=== PATIENT | female | born 2000 | race Two or more races ===

== ENCOUNTER 2020-11-23 11:37 | Emergency (ER) | payer BC, OTHER ==
[~2020-11-23] VITALS: Ht 162.6 cm; Wt 49.9 kg
[2020-11-23 12:20] VITALS: BP 127/85
[2020-11-23] MEDS ORDERED: KETOROLAC TROMETH 30 MG/ML 1ML VIAL IV ONE (12:30)
[2020-11-23] MEDS ORDERED: diphenhdrAMINE HCL 50 MG/1 ML VL IV ONE (12:30)
[2020-11-23] MEDS ORDERED: SODIUM CHLORIDE 0.9% 1,000 ML IVB ONE (12:30)
[2020-11-23 13:03] LABS: Basophils # (auto) 0 10 ^3/uL (0-0.2); Basophils % (auto) 0.5 % (0.0-2.0); Eosinophils # (auto) 0 10 ^3/uL (0-0.8); Eosinophils % (auto) 0.3 % (0.0-7.0); Hematocrit 37.6 % (36.0-46.0); Hemoglobin 13.3 g/dL (12.2-16.2); Lymphocytes # (auto) 1.5 10 ^3/uL (0.4-5.4); Lymphocytes % (auto) 22.1 % (10.0-50.0); Mean Corpuscular Hemoglobin 31.2 pg (28.0-32.0); Mean Corpuscular Hgb Conc. 35.3 g/dL (32.0-36.0); Mean Corpuscular Volume 88.3 fL (80.0-100.0); Monocytes # (auto) 0.3 10 ^3/uL (0-1.3); Monocytes % (auto) 4.6 % (0.0-12.0); Neutrophils % (auto) 72.5 % (37.0-80.0); Red Blood Cells 4.26 10^6/uL (4.0-5.20)
[2020-11-23 13:14] LABS: Urine Bacteria FEW /hpf (None Seen); Urine Blood Negative /uL (Negative); Urine Specific Gravity 1.011 (1.001-1.035); Urine WBC 2 /hpf (0 - 5)
[2020-11-23 13:20] LABS: Albumin 4.1 g/dL (3.4-5.0); Calcium 8.8 mg/dL (8.5-10.1); Potassium 3.7 mmol/L (3.5-5.1)
[2020-11-23 13:23] LABS: BUN/Creatinine Ratio 11.8; Bilirubin, Total 0.7 mg/dL (0.2-1.0); Total Protein 7.6 g/dL (6.4-8.2)
== END 2020-11-23 14:32 | disposition home or self-care (01) ==
LOC: ER 11:37
DX: N20.0 Calculus of kidney (principal); F41.9 Anxiety disorder, unspecified; Z86.39 Personal history of other endocrine, nutritional and metabolic disease; Z88.0 Allergy status to penicillin
CPT/HCPCS: 36415; 74176; 80053; 81001; 81025; 83690; 84443; 85025; 96361; 96374; 96375; 99284; J1200; J1885; J7030

== ENCOUNTER 2022-10-02 20:51 | Emergency (ER) | payer BC, OTHER ==
[~2022-10-02] VITALS: Ht 162.6 cm; Wt 50.0 kg
[2022-10-02] MEDS ORDERED: ONDANSETRON HCL 4 MG/2 ML VIAL IV ONE (21:00)
[2022-10-02] MEDS ORDERED: SODIUM CHLORIDE 0.9% 1,000 ML IV ONE (21:00)
[2022-10-02 21:54] LABS: Basophils # (auto) 0.1 10 ^3/uL (0-0.2); Eosinophils # (auto) 0.1 10 ^3/uL (0-0.8); Eosinophils % (auto) 1.9 % (0.0-7.0); Hemoglobin 13.3 g/dL (12.2-16.2); Lymphocytes # (auto) 3.3 10 ^3/uL (0.4-5.4); Lymphocytes % (auto) 47.2 % (10.0-50.0); Mean Corpuscular Hemoglobin 29.8 pg (28.0-32.0); Mean Corpuscular Volume 85.1 fL (80.0-100.0); Monocytes # (auto) 0.7 10 ^3/uL (0-1.3); Monocytes % (auto) 9.6 % (0.0-12.0); Neutrophils # (auto) 2.8 10 ^3/uL (1.6-8.6); Neutrophils % (auto) 40.3 % (37.0-80.0); Nucleated Red Blood Cells % 0.1 %; Red Blood Cells 4.46 10^6/uL (4.0-5.20); Red Cell Distribution Width 11.8 % (11.8-14.3)
[2022-10-02 22:05] LABS: Potassium 3.7 mmol/L (3.5-5.1)
[2022-10-02 22:08] LABS: BUN/Creatinine Ratio 16.7 (10.0-20.0)
[2022-10-02 22:10] LABS: Bilirubin, Total 0.5 mg/dL (0.2-1.0); Total Protein 7.2 g/dL (6.4-8.2)
[2022-10-02 23:03] LABS: Urine Bacteria NONE SEEN /hpf (None Seen); Urine Blood TRACE /uL (Negative); Urine Mucus FEW (None Seen); Urine Specific Gravity 1.019 (1.001-1.035); Urine WBC 6 /hpf (0 - 5)
[2022-10-03] MEDS ORDERED: ACETAMINOPHEN 325 MG TAB PO ONE (00:45)
[2022-10-03 02:00] VITALS: BP 107/56
[2022-10-03] MEDS ORDERED: AZIT250T9 PO ×2 (02:29→02:51)
[2022-10-03] MEDS ORDERED: PRED20TA2 PO ×2 (02:29→02:51)
== END 2022-10-03 02:55 | disposition home or self-care (01) ==
LOC: ER 20:51
DX: E05.90 Thyrotoxicosis, unspecified without thyrotoxic crisis or storm (principal); R07.89 Other chest pain; F41.9 Anxiety disorder, unspecified; Z88.0 Allergy status to penicillin
CPT/HCPCS: 36415; 71045; 74176; 80053; 81001; 83690; 84443; 85025; 93005; 96361; 96374; 99285; J2405; J7030

== ENCOUNTER 2022-12-23 19:10 | Emergency (ER) | payer BC, OTHER ==
[~2022-12-23] VITALS: Ht 162.6 cm; Wt 49.1 kg
[~2022-12-23 19:10] MED LIST: ACET500T58 PO; AZIT-43 PO; AZITTAB PO; PRED20TA2 PO
[2022-12-23 19:38] VITALS: BP 127/55
== END 2022-12-23 22:49 | disposition home or self-care (01) ==
LOC: ER 19:13 → EEVIPCON 19:13 → ER 22:48
DX: S61.231A Puncture wound without foreign body of left index finger without damage to nail, initial encounter (principal); F41.9 Anxiety disorder, unspecified; E03.9 Hypothyroidism, unspecified; Z88.0 Allergy status to penicillin; W46.0XXA Contact with hypodermic needle, initial encounter; Y93.89 Activity, other specified; Y92.89 Other specified places as the place of occurrence of the external cause; Y99.0 Civilian activity done for income or pay
CPT/HCPCS: 36415; 86703; 86706; 86803; 87340

== ENCOUNTER 2023-12-16 14:06 | Emergency (ER) | payer BC, OTHER ==
[~2023-12-16] VITALS: Ht 162.6 cm; Wt 52.2 kg
[2023-12-16 14:36] LABS: Basophils # (auto) 0 10 ^3/uL (0-0.2); Basophils % (auto) 0.3 % (0.0-2.0); Eosinophils # (auto) 0 10 ^3/uL (0-0.8); Eosinophils % (auto) 0.8 % (0.0-7.0); Hemoglobin 13.3 g/dL (12.2-16.2); Lymphocytes # (auto) 1.6 10 ^3/uL (0.4-5.4); Lymphocytes % (auto) 27.7 % (10.0-50.0); Mean Corpuscular Hemoglobin 28.6 pg (28.0-32.0); Mean Corpuscular Hgb Conc. 33.3 g/dL (32.0-36.0); Mean Corpuscular Volume 85.9 fL (80.0-100.0); Monocytes # (auto) 0.5 10 ^3/uL (0-1.3); Monocytes % (auto) 8.2 % (0.0-12.0); Neutrophils # (auto) 3.7 10 ^3/uL (1.6-8.6); Nucleated Red Blood Cells % 0.1 %; Red Blood Cells 4.66 10^6/uL (4.0-5.20); Red Cell Distribution Width 11.9 % (11.8-14.3); White Blood Cell 5.9 10^3/uL (4.4-10.8)
[2023-12-16] MEDS: SODIUM CHLORIDE 0.9% 1,000 ML IVB ONE (14:45)
[2023-12-16] MEDS: PROPRANOLOL HCL 20 MG TAB PO ONE (15:44)
[2023-12-16 16:18] VITALS: BP 102/51; PULSE 96; RESP 17; TEMP 98; O2SAT 100
[2023-12-16 16:29] LABS: Amphetamine Screen, Urine Neg (NEGATIVE)
[2023-12-16 16:30] LABS: Barbiturate Scree,Urine Neg (NEGATIVE); Benzodiazephine Screen, Urine Neg (NEGATIVE); Cannabinoid Screen, Urine Neg (NEGATIVE); Cocaine Screen, Urine Neg (NEGATIVE); Opiate Scree,Urine Neg (NEGATIVE); Phencyclidine Screen, Urine Neg (NEGATIVE)
== END 2023-12-16 16:24 | disposition home or self-care (01) ==
LOC: ER 14:06
DX: R00.2 Palpitations (principal); F41.9 Anxiety disorder, unspecified; Z88.0 Allergy status to penicillin; Z79.899 Other long term (current) drug therapy
CPT/HCPCS: 36415; 71045; 80307; 83880; 84443; 84484; 85025; 93005; 96360; 99285; J7030

== ENCOUNTER 2024-06-09 17:04 | Emergency (ER) | payer BC, OTHER ==
[~2024-06-09] VITALS: Ht 162.6 cm; Wt 55.0 kg
--- NOTE | 2024-06-09 17:17 | ECG ---
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
[2024-06-09 17:34] LABS: Basophils # (auto) 0 10 ^3/uL (0-0.2); Basophils % (auto) 0.4 % (0.0-2.0); Eosinophils # (auto) 0.2 10 ^3/uL (0-0.8); Eosinophils % (auto) 2.3 % (0.0-7.0); Hematocrit 38.7 % (36.0-46.0); Lymphocytes # (auto) 2.6 10 ^3/uL (0.4-5.4); Lymphocytes % (auto) 38.3 % (10.0-50.0); Mean Corpuscular Hemoglobin 30.3 pg (28.0-32.0); Mean Corpuscular Hgb Conc. 33.5 g/dL (32.0-36.0); Mean Corpuscular Volume 90.3 fL (80.0-100.0); Monocytes # (auto) 0.4 10 ^3/uL (0-1.3); Monocytes % (auto) 5.8 % (0.0-12.0); Neutrophils # (auto) 3.7 10 ^3/uL (1.6-8.6); Neutrophils % (auto) 53.2 % (37.0-80.0); Platelet Count (auto) 228 10^3/uL (140-450); Red Blood Cells 4.28 10^6/uL (4.0-5.20); Red Cell Distribution Width 12.1 % (11.8-14.3); White Blood Cell 6.9 10^3/uL (4.4-10.8)
[2024-06-09 17:53] LABS: Alanine Aminotransferase 13 U/L (7-40); Albumin 4.3 g/dL (3.2-4.8); Alkaline Phosphatase 27 U/L (46-116); Anion Gap 7 (5-15); Aspartate Aminotransferase 13 U/L (13-40); BUN/Creatinine Ratio 18.1 (10.0-20.0); Bilirubin, Total 0.2 mg/dL (0.2-1.0); Blood Urea Nitrogen 15 mg/dL (9-23); Calcium 9.7 mg/dL (8.7-10.4); Carbon Dioxide 28 mmol/L (20-31); Chloride 107 mmol/L (98-107); Glucose 88 mg/dL (74-106); Potassium 4.1 mmol/L (3.5-5.1); Sodium 142 mmol/L (136-145); Total Protein 6.5 g/dL (5.7-8.2)
[2024-06-09] MEDS: PROPRANOLOL HCL 20 MG TAB PO ONE (18:00)
[2024-06-09 18:01] VITALS: TEMP 98.7
--- NOTE | 2024-06-09 19:12 | ED.PDOC ---
HPI Comments 23-year-old female complaining of chest palpitations. Patient reports a history of palpitations. Has hypothyroidism with Alvina's. States palpitations came on approximate 2 hours ago so she took her propranolol 5 mg. States no significant improvement. States her resting heart rate is typically at 90-120. Last appointment with reconciliation coordinator was . She was instructed to stop taking her thyroid medicines because her levels were normal. Patient denies any chest pain. Chief Complaint: Palpitations Time Seen by MD: 17:21 Primary Care Provider: WYATT Reviewed Notes: Nurses Notes Allergies: Coded Allergies: Penicillins (Verified Allergy, Unknown, 11/23/20) Home Meds Active Scripts Prednisone (Prednisone) 20 Mg Tab, 20 MG PO TID for 4 Days, #12 MG Prov:ANITA SANDRA MD 10/03/22 Azithromycin (Azithromycin) 250 Mg Tab, 250 MG PO DAILY, #6 TAB Prov:ANITA ASNDRA MD 10/03/22 Prednisone (Prednisone) 20 Mg Tab, 20 MG PO TID for 4 Days, #12 MG Prov:ANITA SANDRA MD 10/03/22 Azithromycin (Azithromycin) 250 Mg Tab, 250 MG PO DAILY, #6 TAB Prov:ANITA SANDRA MD 10/03/22 Acetaminophen (Acetaminophen) 500 Mg Tab, 500 MG PO QIDP, #30 TAB 0 Refills Prov:LUBNA BAL 06/06/22 Azithromycin (Zithromax Z-Thaddeus) 250 Mg Tab, 250 MG PO DAILY, #1 PACK 0 Refills Prov:LUBNA BAL 06/06/22 Prednisone (Prednisone) 20 Mg Tab, 20 MG PO BID for 5 Days, #10 MG 0 Refills Prov:LUBNA BAL 06/06/22 Information Source: Patient Mode of Arrival: Ambulatory Past Medical History PAST MEDICAL HISTORY: Anxiety, Thyroid Surgical History: Denies all surgeries 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 Family History Family History: Unknown Social History Smoker: Non-Smoker Alcohol: Rarely Drugs: Denies Drug Use Lives In: Home Constitutional: denies: chills, diaphoresis, fatigue, fever, malaise, sweats, weakness, others EENTM: denies: blurred vision, double vision, ear bleeding, ear discharge, ear drainage, ear pain, ear ringing, eye pain, eye redness, hearing loss, mouth pain, mouth swelling, nasal discharge, nose bleeding, nose congestion, nose pain, photophobia, tearing, throat pain, throat swelling, voice changes, others Respiratory: denies: cough, hemoptysis, orthopnea, SOB at rest, shortness of breath, SOB with excertion, stridor, wheezing, others Cardiovascular: reports: palpitations; denies: chest pain, dizzy spells, diaphoresis, Dyspnea on exertion, edema, irregular heart beat, left arm pain, lightheadedness, PND, syncope, others Gastrointestinal: denies: abdomen distended, abdominal pain, blood streaked bowels, constipated, diarrhea, dysphagia, difficulty swallowing, hematemesis, melena, nausea, poor appetite, poor fluid intake, rectal bleeding, rectal pain, vomiting, others Genitourinary: denies: abnormal vagina bleeding, burning, dyspareunia, dysuria, flank pain, frequency, hematuria, incontinence, pain, , vagina discharge, urgency, others Neurological: denies: dizziness, fainting, headache, left sided numbness, left sided weakness, numbness, paresthesia, pre-existing deficit, right sided numbness, right sided weakness, seizure, speech problems, tingling, tremors, weakness, others Musculoskeletal: denies: back pain, gout, joint pain, joint swelling, muscle pa in, muscle stiffness, neck pain, others Integumetry: denies: bruises, change in color, change in hair/nails, dryness, laceration, lesions, lumps, rash, wounds, others Physical Exam General Appearance: No Apparent Distress, Normal HEENT: Normal ENT Inspection, Pharynx Normal, TMs Normal Neck: Full Range of Motion, Non-Tender, Normal, Normal Inspection Respiratory: Chest Non-Tender, Lungs Clear, No Accessory Muscle Use, No Respiratory Distress, Normal Breath Sounds Cardiovascular: No Edema, No JVD, No Murmur, No Gallop, Normal Peripheral Pulses, Regular Rate/Rhythm Breast Exam: Deferred Gastrointestinal: No Organomegaly, Non Tender, No Pulsatile Mass, Normal Bowel Sounds, Soft Genitalia: Deferred Pelvic: Deferred Rectal: Deferred Extremities: No calf tenderness, Normal capillary refill, Normal inspection, Normal range of motion, Non-tender, No pedal edema Musculoskeletal : Apperance: Normal Neurologic: Alert, inside account executive II-XII nml as Tested, No Motor Deficits, Normal Affect, Normal Mood, No Sensory Deficits Cerebellar Function: Normal Reflexes: Normal Skin: Dry, Normal Color, Warm Lymphatic: No Adenopathy Was a procedure done? Was a procedure done?: No CP Differential Dx Differential Diagnosis: Angina, Anxiety / Panic Attack, WPW X-Ray, Labs, Meds, VS Vital Signs Date Time Temp Pulse Resp B/P (MAP) Pulse Ox O2 Delivery O2 Flow Rate FiO2 06/09/24 18:01 98.7 83 17 103/61 (75) 98 98.7 06/09/24 18:01 83 17 97 Room Air 06/09/24 18:00 83 103/61 06/09/24 17:23 99.6 100 18 124/78 (93) 96 06/09/24 17:14 85 Lab Test 06/09/24 18:12 06/09/24 17:15 Range/Units Troponin I High Sensitivity < 3 L < 3 L </=34 ng/L White Blood Count 6.9 4.4-10.8 10^3/uL Red Blood Count 4.28 4.0-5.20 10^6/uL Hemoglobin 13.0 12.2-16.2 g/dL Hematocrit 38.7 36.0-46.0 % Mean Corpuscular Volume 90.3 80.0-100.0 fL Mean Corpuscular Hemoglobin 30.3 28.0-32.0 pg Mean Corpuscular Hemoglobin Concent 33.5 32.0-36.0 g/dL Red Cell Distribution Width 12.1 11.8-14.3 % Platelet Count 228 140-450 10^3/uL Mean Platelet Volume 8.2 6.9-10.8 fL Neutrophils (%) (Auto) 53.2 37.0-80.0 % Lymphocytes (%) (Auto) 38.3 10.0-50.0 % Monocytes (%) (Auto) 5.8 0.0-12.0 % Eosinophils (%) (Auto) 2.3 0.0-7.0 % Basophils (%) (Auto) 0.4 0.0-2.0 % Neutrophils # (Auto) 3.7 1.6-8.6 10 ^3/uL Lymphocytes # (Auto) 2.6 0.4-5.4 10 ^3/uL Monocytes # (Auto) 0.4 0-1.3 10 ^3/uL Eosinophils # (Auto) 0.2 0-0.8 10 ^3/uL Basophils # (Auto) 0 0-0.2 10 ^3/uL Nucleated Red Blood Cells 0.0 % Sodium Level 142 136-145 mmol/L Potassium Level 4.1 3.5-5.1 mmol/L Chloride Level 107 98-107 mmol/L Carbon Dioxide Level 28 20-31 mmol/L Anion Gap 7 5-15 Blood Urea Nitrogen 15 9-23 mg/dL Creatinine 0.83 0.550-1.02 mg/dL Glomerular Filtration Rate Calc 102 >90 mL/min BUN/Creatinine Ratio 18.1 10.0-20.0 Serum Glucose 88 74-106 mg/dL Calcium Level 9.7 8.7-10.4 mg/dL Total Bilirubin 0.2 0.2-1.0 mg/dL Aspartate Amino Transferase (AST) 13 13-40 U/L Alanine Aminotransferase (ALT) 13 7-40 U/L Alkaline Phosphatase 27 L 46-116 U/L Total Protein 6.5 5.7-8.2 g/dL Albumin 4.3 3.2-4.8 g/dL Thyroid Stimulating Hormone (TSH) 0.59 0.55-4.78 uIU/mL Current Medications Medications (Trade) Dose Ordered Sig/Maria Route Start Time Stop Time Status Last Admin Propranolol HCl (Inderal Tablet) 5 mg ONCE ONCE PO 06/09/24 17:30 06/09/24 17:32 DC 06/09/24 18:00 X-Ray, Labs, Meds, VS Comment Imaging: X-rays and CT scans were reviewed and interpreted by this provider, imaging shows no fractures and no pathological disease. Pending radiology review. Laboratory: Labs reviewed and interpreted by this provider. No significant abnormalities noted. Patient has prior medical visits reviewed. Med reconciliation performed Vital signs reviewed Time of 1ST Reevaluation: 19:12 Reevaluation 1ST: Improved Patient Education/Counseling: Diagnosis, Treatment, Need For Follow Up (Patient advised to follow-up in the emergency room in the next 24 to 48 hours if symptoms do not improve. Advised follow-up with PCP in the next 3 to 5 days. Patient verbalized understanding. ) Family Education/Counseling: Diagnosis, Treatment Departure 1 Departure Time of Disposition: 19:11 Impression: Primary Impression: Palpitation Additional Impression: History of hyperthyroidism Disposition: 01 HOME / SELF CARE / HOMELESS Condition: Fair Discharged With: Self Critical Care Note Critical Care Time?: No Stability Stability form required: No Heart Score Heart Score: Heart Score Response (Comments) Value History N/A 0 EKG N/A 0 Age N/A 0 Risk Factors N/A 0 Troponin N/A 0 Total 0 KAM BORJASP Jun 09, 2024 19:12
[2024-06-09 19:30] VITALS: BP 120/66; PULSE 63; RESP 16; O2SAT 100
== END 2024-06-09 19:41 | disposition home or self-care (01) ==
LOC: ER 17:04
DX: R00.2 Palpitations (principal); E05.90 Thyrotoxicosis, unspecified without thyrotoxic crisis or storm; F41.9 Anxiety disorder, unspecified; Z79.52 Long term (current) use of systemic steroids; Z88.0 Allergy status to penicillin; Z79.899 Other long term (current) drug therapy
CPT/HCPCS: 36415; 80053; 84443; 84484; 85025; 93005

== ENCOUNTER 2024-10-15 17:01 | Emergency (ER) | payer BC, OTHER ==
[~2024-10-15] VITALS: Ht 162.6 cm; Wt 56.8 kg
--- NOTE | 2024-10-15 17:45 | ED.PDOC ---
HPI Comments 23y F who presents to the ED for chief complaint of chest pain. Pt states she was at work and states she started to have chest pain that started approx 25 mins prior. Pt states the pain was in the center of her chest, constant, rating the pain 7/10, sharp in nature, with pain radiating to the back , with no associated exacerbating or relieving factors. Pt has associated shortness of breath and nausea but otherwise denies diaphoresis, palpitations, fever, cough, headache, dizziness, nausea, or vomiting. Pt states she has history of thyroid storm and states she had similar symptoms when she last had episode. Pt otherwise denies any other symptoms at this time. Chief Complaint: Chest Pain Time Seen by MD: 17:41 Primary Care Provider: WYATT Reviewed Notes: Nurses Notes, Medications, Allergies Allergies: Coded Allergies: Penicillins (Verified Allergy, Unknown, 11/23/20) Home Meds Active Scripts Prednisone (Prednisone) 20 Mg Tab, 20 MG PO TID for 4 Days, #12 MG Prov:ANITA SANDRA MD 10/03/22 Azithromycin (Azithromycin) 250 Mg Tab, 250 MG PO DAILY, #6 TAB Prov:ANITA SANDRA MD 10/03/22 Prednisone (Prednisone) 20 Mg Tab, 20 MG PO TID for 4 Days, #12 MG Prov:ANITA SANDRA MD 10/03/22 Azithromycin (Azithromycin) 250 Mg Tab, 250 MG PO DAILY, #6 TAB Prov:ANITA SANDRA MD 10/03/22 Acetaminophen (Acetaminophen) 500 Mg Tab, 500 MG PO QIDP, #30 TAB 0 Refills Prov:LUBNA BAL 06/06/22 Azithromycin (Zithromax Z-Thaddeus) 250 Mg Tab, 250 MG PO DAILY, #1 PACK 0 Refills Prov:LUBNA BAL 06/06/22 Prednisone (Prednisone) 20 Mg Tab, 20 MG PO BID for 5 Days, #10 MG 0 Refills Prov:LUBNA BAL 06/06/22 Information Source: Patient Mode of Arrival: Ambulatory Brought in by: self Severity: Moderate Timing: Minutes Duration: Since onset Prehospital treatment: None Location: Chest (R) Radiation: Back Quality: Sharp, Pressure Onset: At Rest Cardiac Risk Factors: None PE Risk Factors: None History of: Similar pain in past Modifying Factors: Nothing Associated Signs and Symptoms: SOB Past Medical History PAST MEDICAL HISTORY: Anxiety, Thyroid Surgical History: Denies all surgeries 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 Family History Family History: Unknown Social History Smoker: Non-Smoker Alcohol: Rarely Drugs: Denies Drug Use Lives In: Home Constitutional: denies: chills, diaphoresis, fatigue, fever, malaise, sweats, weakness, others EENTM: denies: blurred vision, double vision, ear bleeding, ear discharge, ear drainage, ear pain, ear ringing, eye pain, eye redness, hearing loss, mouth pain, mouth swelling, nasal discharge, nose bleeding, nose congestion, nose pain, photophobia, tearing, throat pain, throat swelling, voice changes, others Respiratory: reports: shortness of breath; denies: cough, hemoptysis, orthopnea, SOB at rest, SOB with excertion, stridor, wheezing, others Cardiovascular: reports: chest pain; denies: dizzy spells, diaphoresis, Dyspnea on exertion, edema, irregular heart beat, left arm pain, lightheadedness, palpitations, PND, syncope, others Gastrointestinal: denies: abdomen distended, abdominal pain, blood streaked bowels, constipated, diarrhea, dysphagia, difficulty swallowing, hematemesis, melena, nausea, poor appetite, poor fluid intake, rectal bleeding, rectal pain, vomiting, others Genitourinary: denies: abnormal vagina bleeding, burning, dyspareunia, dysuria, flank pain, frequency, hematuria, incontinence, pain, , vagina discharge, urgency, others Neurological: denies: dizziness, fainting, headache, left sided numbness, left sided weakness, numbness, paresthesia, pre-existing deficit, right sided numbness, right sided weakness, seizure, speech problems, tingling, tremors, weakness, others Musculoskeletal: denies: back pain, gout, joint pain, joint swelling, muscle pain, muscle stiffness, neck pain, others Integumetry: denies: bruises, change in color, change in hair/nails, dryness, laceration, lesions, lumps, rash, wounds, others Allergic/Immunocompromised: denies: Difficulty Healing, Frequent Infections, Hives, Itching, others Hematologic/Lymphatic: denies: anemia, blood clots, easy bleeding, easy bruising, swollen glands, others Endocrine: denies: excessive hunger, excessive sweating, excessive thirst, excessive urination, flushing, intolerance to cold, intolerance to heat, unexplained weight gain, unexplained weight loss, others Psychiatric: denies: anxiety, bipolar disorder, depression, hopeless, panic disorder, schizophrenia, sleepless, suicidal, others All Other Systems: Reviewed and Negative Physical Exam General Appearance: No Apparent Distress HEENT: Normal ENT Inspection, Pharynx Normal, TMs Normal Neck: Full Range of Motion, Non-Tender, Normal, Normal Inspection Respiratory: Chest Non-Tender, Lungs Clear, No Accessory Muscle Use, No Respiratory Distress, Normal Breath Sounds Cardiovascular: No Edema, No JVD, No Murmur, No Gallop, Tachycardia Breast Exam: Deferred Gastrointestinal: No Organomegaly, Non Tender, No Pulsatile Mass, Normal Bowel Sounds, Soft Genitalia: Deferred Pelvic: Deferred Rectal: Deferred Extremities: No calf tenderness, Normal capillary refill, Normal inspection, Normal range of motion, Non-tender, No pedal edema Musculoskeletal : Apperance: Normal Neurologic: Alert, supervisor irrigation II-XII nml as Tested, No Motor Deficits, Normal Affect, Normal Mood, No Sensory Deficits Cerebellar Function: Normal Reflexes: Normal Skin: Dry, Normal Color, Warm Lymphatic: No Adenopathy EKG EKG : Pulse Rate (adult): 106 [place]: Normal Cardiac Rhythm: ST Block: None Hypertrophy: None ST: Normal Was a procedure done? Was a procedure done?: No CP Differential Dx Differential Diagnosis: Angina, Anxiety / Panic Attack, Atrial Dysrhythmia Other Differential Diagnosis thyroid disease, anxiety, palpitations X-Ray, Labs, Meds, VS Vital Signs Date Time Temp Pulse Resp B/P (MAP) Pulse Ox O2 Delivery O2 Flow Rate FiO2 10/15/24 18:05 98 10/15/24 17:45 106 10/15/24 17:10 98.4 105 17 152/78 (102) 100 98.4 10/15/24 17:05 106 Lab Test 10/15/24 18:20 10/15/24 17:28 Range/Units Troponin I High Sensitivity < 3 L < 3 L </=34 ng/L White Blood Count 5.5 4.4-10.8 10^3/uL Red Blood Count 4.60 4.0-5.20 10^6/uL Hemoglobin 13.8 12.2-16.2 g/dL Hematocrit 41.2 36.0-46.0 % Mean Corpuscular Volume 89.5 80.0-100.0 fL Mean Corpuscular Hemoglobin 29.9 28.0-32.0 pg Mean Corpuscular Hemoglobin Concent 33.5 32.0-36.0 g/dL Red Cell Distribution Width 12.3 11.8-14.3 % Platelet Count 205 140-450 10^3/uL Mean Platelet Volume 8.8 6.9-10.8 fL Neutrophils (%) (Auto) 44.8 37.0-80.0 % Lymphocytes (%) (Auto) 44.6 10.0-50.0 % Monocytes (%) (Auto) 8.3 0.0-12.0 % Eosinophils (%) (Auto) 1.6 0.0-7.0 % Basophils (%) (Auto) 0.7 0.0-2.0 % Neutrophils # (Auto) 2.5 1.6-8.6 10 ^3/uL Lymphocytes # (Auto) 2.5 0.4-5.4 10 ^3/uL Monocytes # (Auto) 0.5 0-1.3 10 ^3/uL Eosinophils # (Auto) 0.1 0-0.8 10 ^3/uL Basophils # (Auto) 0 0-0.2 10 ^3/uL Nucleated Red Blood Cells 0.2 % Sodium Level 140 136-145 mmol/L Potassium Level 4.1 3.5-5.1 mmol/L Chloride Level 104 98-107 mmol/L Carbon Dioxide Level 26 20-31 mmol/L Anion Gap 10 5-15 Blood Urea Nitrogen 14 9-23 mg/dL Creatinine 0.71 0.550-1.02 mg/dL Glomerular Filtration Rate Calc 122 >90 mL/min BUN/Creatinine Ratio 19.7 10.0-20.0 Serum Glucose 99 74-106 mg/dL Calcium Level 10.0 8.7-10.4 mg/dL Thyroid Stimulating Hormone (TSH) 0.01 L 0.55-4.78 uIU/mL XY CHEST TWO VIEWS ROUTINE IMPRESSION: 1. No active cardiopulmonary disease. The patient's CBC and chemistry panel are within normal limits The TSH level is 0.01 The patient's heart rate has come down. The troponin level is negative The patient's CBC and chemistry panel are within normal limits The patient was being discharged and will follow up with the primary care doctor The patient will return to the emergency department's the condition worsens. Images Reviewed?: Images reviewed and evaluated by me Time of 1ST Reevaluation: 18:15 Reevaluation 1ST: Unchanged Patient Education/Counseling: Diagnosis, Treatment, Prognosis, Need For Follow Up Family Education/Counseling: No Family Present Additional Information -Reviewed patient's previous visit(s): - The following tests were ordered, and results were reviewed by me: trop x3, ekg x3, chest x-ray, tsh, cbc ,bmp - Additional information was gathered from interviewing the following independent Historian: patient - I reviewed and agreed with the following test results read by other provider: radiologist - I discussed treatments and results with medical personnel and: patient Comprehensive systems review obtained and negative except for what is stated in the HPI. Departure 1 Departure Time of Disposition: 19:27 Impression: Primary Impression: Atypical chest pain Disposition: 01 HOME / SELF CARE / HOMELESS Condition: Fair Discharged With: Self Critical Care Note Critical Care Time?: No Stability Stability form required: No Heart Score Heart Score: Heart Score Response (Comments) Value History Slightly Suspicious 0 EKG Normal 0 Age <45 0 Risk Factors No known risk factors 0 Troponin Normal limit 0 Total 0 I personally scribed for KEVIN FREDERICK MD ([email or web address]) on 10/15/24 at 17:45. Electronically submitted by Lydia King ([email or web address]). I personally scribed for KEVIN FREDERICK MD ([email or web address]) on 10/15/24 at 18:59. Electronically submitted by Lydia PEPPER). KEVIN FREDERICK MD Oct 15, 2024 17:45
[2024-10-15 17:47] LABS: Basophils # (auto) 0 10 ^3/uL (0-0.2); Basophils % (auto) 0.7 % (0.0-2.0); Eosinophils # (auto) 0.1 10 ^3/uL (0-0.8); Eosinophils % (auto) 1.6 % (0.0-7.0); Hematocrit 41.2 % (36.0-46.0); Hemoglobin 13.8 g/dL (12.2-16.2); Lymphocytes # (auto) 2.5 10 ^3/uL (0.4-5.4); Lymphocytes % (auto) 44.6 % (10.0-50.0); Mean Corpuscular Hemoglobin 29.9 pg (28.0-32.0); Mean Corpuscular Hgb Conc. 33.5 g/dL (32.0-36.0); Mean Corpuscular Volume 89.5 fL (80.0-100.0); Monocytes # (auto) 0.5 10 ^3/uL (0-1.3); Monocytes % (auto) 8.3 % (0.0-12.0); Neutrophils # (auto) 2.5 10 ^3/uL (1.6-8.6); Neutrophils % (auto) 44.8 % (37.0-80.0); Nucleated Red Blood Cells % 0.2 %; Platelet Count (auto) 205 10^3/uL (140-450); Red Cell Distribution Width 12.3 % (11.8-14.3); White Blood Cell 5.5 10^3/uL (4.4-10.8)
[2024-10-15 17:54] LABS: Chloride 104 mmol/L (98-107); Potassium 4.1 mmol/L (3.5-5.1); Sodium 140 mmol/L (136-145)
[2024-10-15 17:55] LABS: Anion Gap 10 (5-15); Carbon Dioxide 26 mmol/L (20-31)
[2024-10-15 18:00] LABS: BUN/Creatinine Ratio 19.7 (10.0-20.0); Blood Urea Nitrogen 14 mg/dL (9-23); Glucose 99 mg/dL (74-106)
--- NOTE | 2024-10-15 18:29 | DVH ---
XY CHEST TWO VIEWS ROUTINE CLINICAL HISTORY: CP COMPARISON: None TECHNIQUE: Frontal and lateral view of the chest was obtained FINDINGS: Lines and Tubes: None Lungs: No focal consolidation. Pleura: No effusion. No pneumothorax. Cardiomediastinal contours: Unremarkable Bones: No acute osseous abnormality. IMPRESSION: 1. No active cardiopulmonary disease.
[2024-10-15 20:20] VITALS: BP 132/71; PULSE 77; RESP 19; TEMP 98.9; O2SAT 96
--- NOTE | 2024-10-17 06:15 | ECG ---
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
--- NOTE | 2024-10-18 07:18 | ECG ---
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
== END 2024-10-15 20:20 | disposition home or self-care (01) ==
LOC: ER 17:06 → EEVIPCON 17:06 → ER 20:20
DX: R07.89 Other chest pain (principal); F41.9 Anxiety disorder, unspecified; E03.9 Hypothyroidism, unspecified; Z79.899 Other long term (current) drug therapy; Z88.0 Allergy status to penicillin
CPT/HCPCS: 36415; 71046; 80048; 84443; 84484; 85025; 93005